=== PATIENT | female | born 1980 | race Caucasian/White ===

== ENCOUNTER 2018-07-14 00:46 | Emergency (ER) | payer SELFPAY ==
[~2018-07-14] VITALS: Ht 180.3 cm; Wt 111.6 kg
--- NOTE | 2018-07-14 01:15 | NUR ---
ED Nurse Note: RECIEVED PT FROM HOME AWAKE, ALERT AND ORIENTED X 4, PT HERE WITH C/O SWELLING AND NUMBNESS TO LEFT SIDE OF FACE, PT STATES STARTED WITH EARACHE ON LEFT SIDE, SHE ADMINISTERED DROPS FROM PHARMACY FOR PAIN AND AWAKENED WITH PALSY LIKE S/S, PT DENIES PAIN, SOB, FORGETFULNESS OR ANY OTHER COMPLAINTS OR DISCOMFORTS, PT IS AMBULATORY WIHT STEADY GAIT, NO DIZZINESS OR CP OR SOB.
--- NOTE | 2018-07-14 01:38 | Emergency Room Report ---
History of Present Illness General Chief Complaint: General Complaint Source: Patient Present Illness HPI Patient presents with left facial numbness and weakness. This started yesterday. She was feeling some pain behind her ear on the left-hand side yesterday. She denies any fevers or chills. She took some [id number]-wglyuma eardrops. She denies any headache, fever, chills, polyuria polydipsia or comorbidities. No head trauma, other weakness or numbness. No blood thinners or oncologic problems. Period started today. No dysuria, nausea, vomiting, diarrhea, chest pain, rashes, sore throat. 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 Now: No Reviewed Nursing Documentation: PMH: Agreed; PSxH: Agreed Nursing Documentation-PMH Past Medical History: No Stated History Review of Systems All Other Systems: negative except mentioned in HPI Physical Exam Vital Signs Date Time Temp Pulse Resp B/P (MAP) Pulse Ox O2 Delivery O2 Flow Rate FiO2 07/14/18 01:00 99.9 100 16 161/90 96 Sp02 EP Interpretation: reviewed, normal General Appearance: well appearing, no apparent distress, GCS 15, non-toxic Head: normocephalic, atraumatic Eyes: left eye other - Eyelid weakness; bilateral eye PERRL, bilateral eye EOMI ENT: TMs + canals normal, moist mucus membranes, other - Minimal mastoid tenderness left Neck: supple Respiratory: lungs clear, normal breath sounds Cardiovascular #1: regular rate, rhythm Cardiovascular #2: 2+ radial (R) Gastrointestinal: normal inspection, normal bowel sounds, non tender, no mass, non-distended Musculoskeletal: back normal, gait/station normal, normal range of motion Neurologic: alert, oriented x3, DTRs symmetric, cerebellar normal, normal gait , speech normal, other - Left facial weakness and numbness rest of cranial nerves are normal Psychiatric: mood/affect normal Skin: normal inspection, warm/dry Medical Decision Making Diagnostic Impression: Primary Impression: Romero's palsy ER Course Patient presents with left facial weakness and numbness. Exam is consistent with a Romero's palsy and the diagnosis is clinical. Steroids and antiviral medications are indicated. Discussed possible clinical course and the need for neurologic or ENT follow-up. Patient stable for outpatient observation and treatment. Last Vital Signs Date Time Temp Pulse Resp B/P (MAP) Pulse Ox O2 Delivery O2 Flow Rate FiO2 07/14/18 02:20 99.9 16 161/90 96 07/14/18 02:00 81 Status: improved Disposition: HOME, SELF-CARE Condition: Improved Scripts Prednisone* (PREDNISONE*) 20 Mg Tablet 10 MG ORAL DAILY, #22 TAB 4 po QD X 2, 3 po QD X 2, 2 po QD X 2, 1 po QD X 4 Prov: Blair Rm MD 07/14/18 Valacyclovir Hcl* (VALTREX*) 500 Mg Tablet 1000 MG ORAL TID, #20 TAB Prov: Blair Rm MD 07/14/18 Blair Rm MD Jul 14, 2018 01:38
[2018-07-14] MEDS ORDERED: PREDNISONE20 MG ORAL (01:47)
[2018-07-14] MEDS ORDERED: VALACYCLOVIR500 MG ORAL (01:47)
[2018-07-14 02:00] VITALS: BP 148/82
--- NOTE | 2018-07-14 02:10 | NUR ---
ED Nurse Note: PT MEDICATED ORDERED, NO S/S OF ADVERSE REACTION NOTED FROM MEDS GIVEN. PT IS BEING D/C WITH INSTRUCTIONS FOR F/U, AFTER CARE AND RE-VERBALIZES PROPER MEDICATION ADMINISTRATION AND S/S TO MONITOR FOR, PT LEAVING AMBULATORY, ARMBAND REMOVED, NO COMPLICATIONS OR DISTRESS NOTED DURING D/C TO HOME.
[2018-07-14 02:20] VITALS: BP 161/90
== END 2018-07-14 02:10 | disposition home or self-care (01) ==
LOC: EMR 01:47
DX: G51.0 Bell's palsy (principal)
CPT/HCPCS: 99282; J7512